=== PATIENT | male | born 2000 | race Caucasian/White ===

== ENCOUNTER 2023-07-04 11:43 | Emergency (ER) | payer OTHER ==
[~2023-07-04] VITALS: Ht 175.3 cm; Wt 77.7 kg
[2023-07-04 11:43] VITALS: BP 138/85; TEMP 97.8; O2SAT 99
[2023-07-04] MEDS ORDERED: NAPR-837 PO (13:33)
== END 2023-07-04 13:40 | disposition home or self-care (01) ==
LOC: M ED 11:43
DX: S80.01XA Contusion of right knee, initial encounter (principal); X58.XXXA Exposure to other specified factors, initial encounter; Y99.1 Military activity